=== PATIENT | male | born 1990 | race Hispanic/Latino ===

== ENCOUNTER 2016-10-17 03:36 | Emergency (ER) | payer SELFPAY ==
[2016-10-17 03:36] VITALS: BMI 25.8
[2016-10-17 03:45] VITALS: BP 150/87; PULSE 115; RESP 17; TEMP 98.8; O2SAT 100
--- NOTE | 2016-10-17 04:39 | ED PDOC ---
HPI: Psych/Substance Abuse Time Seen by Provider: 10/17/16 03:57 Chief Complaint (Nursing): Alcohol Ingestion Chief Complaint (Provider): Alcohol Ingestion History/Exam Limitations: intoxication Onset/Duration Of Symptoms: Hrs Current Symptoms Are (Timing): Still Present Additional Complaint(s): 25 y/o male presents to the emergency department via EMS for public intoxication. Denies any medical complaints. Past Medical History Reviewed: Historical Data, Nursing Documentation, Vital Signs Vital Signs: Last Vital Signs Temp 98.8 F 10/17/16 03:43 Pulse 115 H 10/17/16 03:43 Resp 17 10/17/16 03:43 BP 150/87 10/17/16 03:43 Pulse Ox 100 10/17/16 03:43 - Medical History PMH: No Chronic Diseases Denies: Depression - Surgical History Surgical History: No Surg Hx - Family History Family History: States: Unknown Family Hx - Home Medications Home Medications: Ambulatory Orders Medication Instructions Recorded Naproxen [Naprosyn] 500 mg PO Q12 PRN #20 tab 04/26/12 - Allergies Allergies/Adverse Reactions: Allergies Allergy/AdvReac Type Severity Reaction Status Date / Time No Known Allergies Allergy Verified 10/17/16 03:44 Review of Systems Review Of Systems: ROS cannot be obtained secondary to pt's inabilty to answer questions. Physical Exam - Reviewed Nursing Documentation Reviewed: Yes Vital Signs Reviewed: Yes - Physical Exam Appears: Positive for: Non-toxic, No Acute Distress Head Exam: Positive for: ATRAUMATIC, NORMOCEPHALIC Skin: Positive for: Normal Color, Warm, Dry ENT: Positive for: Normal ENT Inspection. Negative for: Pharyngeal Erythema Neck: Positive for: Normal, Supple Cardiovascular/Chest: Positive for: Regular Rate, Rhythm. Negative for: Murmur Respiratory: Positive for: Normal Breath Sounds. Negative for: Accessory Muscle Use, Respiratory Distress Gastrointestinal/Abdominal: Positive for: Normal Exam, Soft. Negative for: Tenderness Extremity: Positive for: Normal ROM. Negative for: Pedal Edema Neurologic/Psych: Positive for: Alert, Oriented, Other (Speech is slurred) - ECG O2 Sat by Pulse Oximetry: 100 (RA) Pulse Ox Interpretation: Normal Medical Decision Making Medical Decision Making: Time: 03:57 Initial impression: Alcohol Intoxication Initial plan: --Alcohol Serum Stat --AccuCheck: 93 --Revaluation Time: 05:09 --At this time patient is awake, alert, oriented x3 with stable gait and clear speech. Medically stable for discharge. Scribe Attestation: Documented by Radha Hinojosa, acting as a scribe for Bon Harmon MD. Provider Scribe Attestation: All medical record entries made by the Scribe were at my direction and personally dictated by me. I have reviewed the chart and agree that the record accurately reflects my personal performance of the history, physical exam, medical decision making, and the department course for this patient. I have also personally directed, reviewed, and agree with the discharge instructions and disposition. Disposition - Clinical Impression Clinical Impression: Alcohol intoxication - Disposition Disposition: Routine/Home Disposition Time: 05:09 Condition: STABLE Instructions: Alcohol Intoxication (ED)
== END 2016-10-17 06:25 | disposition home or self-care (01) ==
LOC: H.ER 03:36
DX: F10.129 Alcohol abuse with intoxication, unspecified (principal); Y90.7 Blood alcohol level of 200-239 mg/100 ml
CPT/HCPCS: 82948; 99282; G0480